=== PATIENT | male | born 1965 | race Caucasian/White ===

== ENCOUNTER → 2019-11-27 07:03 | Outpatient (CLI) | payer BC, SELFPAY ==
--- NOTE | 2019-11-27 | XR_ITS ---
PROCEDURE: XR HAND RT MIN 3V CLINICAL INDICATION: Pain and stiffness COMPARISON: No exams were available for comparison FINDINGS: No fracture or dislocation. No lytic or blastic change. There is normal mineralization. The joint spaces are well-preserved. No significant degenerative/arthritic changes. No erosive changes evident. Other findings:Minimal hypertrophic changes are present involving the distal and radial aspect of the middle phalanx of the 3rd finger. Small periarticular lucency noted along the radial aspect and distal aspect of the proximal phalanx of the 2nd finger. IMPRESSION: Nonspecific nonacute findings as described above Dictated by: Jason Cross MD 11/27/2019 10:29 Jason Cross MD in [place] 11/27/2019 10:29
--- NOTE | 2019-11-27 | XR_ITS ---
PROCEDURE: XR HAND LT MIN 3V CLINICAL INDICATION: Pain and stiffness COMPARISON: No exams were available for comparison FINDINGS: No fracture or dislocation. No lytic or blastic change. There is normal mineralization. The joint spaces are well-preserved. No significant degenerative/arthritic changes. No erosive changes evident. Other findings:There is a faint calcific density along the tuft of the distal phalanx of the thumb which could be due to an old injury in the absence of acute trauma. IMPRESSION: No acute finding. Please see above for detail Dictated by: Jason Cross MD 11/27/2019 10:32 Jason Cross MD in [place] 11/27/2019 10:32
[2019-11-27 09:47] LABS: Chloride 106 mmol/L (98-107); Potassium 4.2 mmoL/L (3.5-5.1); Sodium 139 mmol/L (136-145)
[2019-11-27 09:50] LABS: Alanine Aminotransferase 22 U/L (12-78); Albumin/Globulin Ratio 1.7 (1.1-1.8); Alkaline Phosphatase 61 U/L (38-126); Anion Gap 12.2 mEq/L (5-15); Aspartate Amino Transferase 32 U/L (17-59); Bilirubin,Total 0.8 mg/dl (0.2-1.3); Blood Urea Nitrogen 19 mg/dl (9-20); Carbon Dioxide 25 mmol/L (22.0-30.0); Cholesterol 136 mg/dl (140-200); Estimated Glomerular Filt Rate 78 ml/min (>60); GFR (African American) 95 ML/MIN (>60); Globulin 2.3 g/dL (1.3-3.2); Total Protein,Serum 6.3 g/dl (6.3-8.2); Triglycerides 77 mg/dl (30-150); VLDL Cholesterol 15 mg/dL (0-40)
[2019-11-27 09:51] LABS: Calcium 8.8 mg/dl (8.4-10.2); Glucose 106 mg/dl (74-100); HDL Cholesterol 46 mg/dl (40-60)
[2019-11-27 10:01] LABS: Direct LDL Cholesterol 76.12 mg/dL (100-129)
== END ==
PROVIDERS: Visit Provider Family Medicine
DX: M25.642 Stiffness of left hand, not elsewhere classified (principal); M25.641 Stiffness of right hand, not elsewhere classified; B35.1 Tinea unguium; Z13.1 Encounter for screening for diabetes mellitus; Z13.220 Encounter for screening for lipoid disorders
CPT/HCPCS: 36415; 73130; 80053; 80061

== ENCOUNTER → 2020-11-21 14:11 | Outpatient (CLI) | payer BC, SELFPAY ==
--- NOTE | 2020-11-21 14:16 | XR_ITS ---
PROCEDURE: XR TIBIA FIBULA RT 2V CLINICAL INDICATION: RT lower leg pain COMPARISON: No exams were available for comparison FINDINGS: No fracture or dislocation. No lytic or blastic change. There is normal mineralization. The joint spaces are well-preserved. No significant degenerative/arthritic changes. No erosive changes evident. There is a small bone island in the proximal tibia IMPRESSION: No acute findings. Dictated by: Jason Cross MD 11/21/2020 15:59 Jason Cross MD in [place] 11/21/2020 15:59
== END ==
PROVIDERS: PCP Family Medicine; Visit Provider Orthopaedic Surgery
DX: M79.604 Pain in right leg (principal)
CPT/HCPCS: 73590

== ENCOUNTER → 2020-12-04 14:14 | Outpatient (CLI) | payer BC, SELFPAY ==
--- NOTE | 2020-12-04 14:14 | MR_ITS ---
PROCEDURE: MR LOWER LEG RT WO CON CLINICAL INDICATION: evaluate for tear COMPARISON: CR XR TIBIA FIBULA RT 2V from 11/21/2020 TECHNIQUE: Routine multiplanar multi echo sequences are performed without gadolinium enhancement. FINDINGS: There is focal increased T2 signal involving the distal most aspect the medial head of the gastrocnemius muscle with a small amount fluid signal intensity in this region suggesting at least a partial tear at its insertion on the proximal aspect of the calcaneal tendon. There is a small amount of subcutaneous edema/fluid at this region. There is a small amount of edema between the medial head of the gastrocnemius and the soleus proximally. No bone marrow edema apparent. No fracture or dislocation. IMPRESSION: Partial tear of the distal most aspect of the gastrocnemius muscle with subcutaneous edema and a small amount fluid between the gastrocnemius medial head and soleus muscle the muscle does not appear retracted Dictated by: Jason Cross MD 12/06/2020 18:17 Jason Cross MD in [place] 12/06/2020 18:17
== END ==
PROVIDERS: PCP Family Medicine; Visit Provider Orthopaedic Surgery
DX: M79.604 Pain in right leg (principal)
CPT/HCPCS: 73718

== ENCOUNTER → 2020-12-19 15:52 | Outpatient (CLI) | payer BC, SELFPAY | PROVIDERS: PCP Family Medicine; Visit Provider Nurse Practitioner | DX: U07.1 COVID-19 (principal) | CPT/HCPCS: C9803; U0003; U0005 ==

== ENCOUNTER 2022-05-26 18:26 | Emergency (ER) | payer BC, SELFPAY ==
--- NOTE | 2022-05-26 18:00 | ECG_ITS ---
APPROVED REPORT Exam: Resting ECG HR:61 bpm ECG Measurements Heart Rate 61 AXES WI 160 P 60 QRSd 105 QRS 36 QT 389 T 52 QTc 393 Conclusion SINUS RHYTHM NORMAL ECG UNCONFIRMED REPORT Electronically signed by : Angel Pagan MD 05/27/2022 18:53:09
[2022-05-26 18:29] VITALS: BP 136/94; PULSE 65; RESP 16; TEMP 36.9; O2SAT 98; BMI 32.7
[2022-05-26 18:34] VITALS: BP 136/94; PULSE 65; O2SAT 98
[2022-05-26 18:54] VITALS: BMI 32.7
--- NOTE | 2022-05-26 18:55 | XR_ITS ---
PROCEDURE INFORMATION: Exam: XR Chest Exam date and time: 05/26/2022 6:53 PM Age: 56 years old Clinical indication: Pain; Chest pressure; Additional info: Chest pain TECHNIQUE: Imaging protocol: Radiologic exam of the chest. Views: 2 views. COMPARISON: CR KUB KUB (SINGLE VIEW) 01/30/2016 8:28 AM FINDINGS: Lungs: Unremarkable. No consolidation. Pleural spaces: Unremarkable. No pleural effusion. No pneumothorax. Heart/Mediastinum: Unremarkable. No cardiomegaly. Bones/joints: Unremarkable. IMPRESSION: No acute findings.
[2022-05-26 19:00] VITALS: BP 136/97; PULSE 62; O2SAT 96
[2022-05-26 19:00] LABS: Microscopic, Urine URINE MICROSCOPIC (MICROSCOPIC)
[2022-05-26 19:02] LABS: Appearance,Urine CLEAR (Clear); Basophils # 0.1 K/mm3 (0-0.2); Basophils % 1.1 % (0.1-2.0); Bilirubin,Urine Negative (Negative); Blood, Urine Negative (Negative); Color,Urine YELLOW (Yellow); Eosinophils # 0.2 K/mm3 (0.0-0.4); Eosinophils % 3.3 % (0.1-12.0); Glucose,Urine (UA) Negative (Negative); Hematocrit 40.3 % (42.0-52.0); Hemoglobin 14.1 g/dL (14.1-18.0); Ketones,Urine Negative (Negative); Leukocyte Esterase,Urine Negative (Negative); Lymphocytes # 1.7 K/mm3 (0.7-4.5); Mean Corpuscular HGB Conc 34.9 g/dL (31.8-35.4); Mean Corpuscular Hemoglobin 31.3 pg (27.0-31.2); Mean Corpuscular Volume 89.5 fl (80-94); Mean Platelet Volume 7.8 fl (7.4-10.4); Monocytes # 0.3 K/mm3 (0.1-1.0); Neutrophils # 5.2 K/mm3 (1.8-7.8); Neutrophils % 68.7 % (37.0-80.0); Nitrate,Urine Negative (Negative); Platelet Count 246 K/mm3 (142-424); Protein,Urine Negative (Negative); Red Cell Distribution Width 13.4 % (11.5-17.5); Urobilinogen,Urine 0.2 EU/dl (0.2); White Blood Count 7.5 K/mm3 (4.8-10.8)
--- NOTE | 2022-05-26 19:02 | PC.NURSE ---
pt gone to xray via wheelchair
[2022-05-26 19:06] LABS: Anion Gap 5.5 mEq/L (5-15); Blood Urea Nitrogen 18 mg/dl (9-20); Calcium 8.6 mg/dl (8.4-10.2); Carbon Dioxide 30 mmol/L (22.0-30.0); Chloride 107 mmol/L (98-107); Creatinine Clearance Estimated 138 mL/min (50-200); Estimated Glomerular Filt Rate 78 ml/min (>60); GFR (African American) 94 ML/MIN (>60); Glucose 95 mg/dl (74-100); Potassium 3.5 mmoL/L (3.5-5.1); Sodium 139 mmol/L (136-145)
[2022-05-26 19:20] LABS: Bacteria,Urine Trace /lpf; Squamous Epithelial Cell,Urine Occasional #/hpf (0-5); WBC,Urine Occasional #/hpf (0-3)
[2022-05-26 19:32] LABS: Troponin I < 0.01 ng/ml (0.00-0.034)
--- NOTE | 2022-05-26 19:45 | PC.NURSE ---
Rounded on patient and family at this time. No new needs and updated on POC.
--- NOTE | 2022-05-26 19:50 | HMH.EDCP ---
Discharge Plan Disposition Patient Disposition: Home, Self-Care Condition: Good Prescriptions Prescriptions: New sucralfate [Carafate] 1 gram tablet 1 g PO TID 28 Days Qty: 84 0RF No Action nabumetone 750 mg tablet 1,500 mg PO DAILY Qty: 180 0RF Rx Instructions: Patient needs appointment prior to any further refills. omeprazole 40 mg capsule,delayed release(DR/EC) 40 mg PO DAILY Qty: 90 3RF Referrals Follow up/Referrals: Hardik Moore MD [Primary Care Provider] - See instructions Clinical Impressions Clinical Impression: Chest pain, Gastro-esophageal reflux Print Language Print Language: Kazakh Discharge ED Provider: Robi Fontaine Chest Pain HPI General Chief Complaint: Chest Pain Stated Complaint: chest pain Time Seen by Provider: 05/26/22 20:01 Mode of Arrival: Ambulatory Source of Information: Patient Limitations: No Limitations Description of Symptoms (Recalled from ER Triage Doc. by RN): c/o chest pain that started 2 days ago with some back pain and sometimes he gets pain down his arm. States his chest pain feels like someone hit him in the chest. States when he lays down or moves to his side the pain gets worse. is concerned with his urine having odor. Took 2-81 aspirin before arrival which improved his pain. History of Present Illness HPI narrative: Patient presents to the emergency department with intermittent chest pain. He states that he has had worsening chest pain over the last several days which she describes as central and nonradiating. He states he has had some associated shortness of breath but is unsure whether it is completely related to his episodes of chest pain. Denies any changes with food. Denies any fever, chills, cough, congestion, nausea, vomiting. Denies any previous history of cardiac related problems. JOAO Score for Non-Stemi Age of Patient: 50-59 years old Heart Rate: 50-69 bpm Systolic Blood Pressure: 120-139 mmhg Serum Creatinine: 0.40-0.79 mg/dl CHF Kill[place] Class: I-No CHF Other Risk Factors: None Non-Stemi Risk Score: 82 Risk Stratification: 1-108 = Low Risk Related Data Previous Rx's Medication Instructions Recorded nabumetone 750 mg tablet 1,500 mg PO DAILY #180 tabs 04/30/22 omeprazole 40 mg capsule,delayed 40 mg PO DAILY #90 caps 04/30/22 release sucralfate 1 gram tablet (Carafate) 1 g PO TID 4 weeks #84 tabs 05/26/22 Allergies Allergy/AdvReac Type Severity Reaction Status Date / Time Iodinated Contrast Media Allergy Mild Verified 12/12/20 14:25 [Iodinated Contrast Media - Oral and] Penicillins [PENICILLINS] Allergy Mild Verified 12/12/20 14:25 shellfish derived Allergy Verified 12/12/20 14:[address] [facility] Disclaimer: The information contained in this section may have been updated after the patient was seen, as this information can be updated by other users. Social History Smoking Status: Never smoker alcohol intake: never current occupational status: employed Travel in the last 8 weeks: None caffeine: No ROS Obtained: Yes All systems reviewed & no additional complaints except as documented Cardiovascular Cardiovascular: Reports chest pain Physical Exam General General appearance: alert and in no apparent distress Head Head exam: atraumatic and normocephalic Eye Eye exam: Present normal appearance, PERRL and EOMI Chest Chest inspection: Present normal inspection Respiratory Respiratory exam: Present normal lung sounds bilaterally Cardiovascular Cardiovascular exam: Present regular rate, normal rhythm and normal heart sounds Abdominal Exam Abdominal exam: Present soft and normal bowel sounds Extremities Exam Extremities exam: Present normal inspection Neurological Exam Neurological exam: Present alert and oriented X3 Psychiatric Psychiatric exam: Present normal affect and normal mood Skin Skin exam: Present warm and dry Medical
--- NOTE | 2022-05-26 19:56 | PC.NURSE ---
MD at bedside discussing results with pt.
[2022-05-26 20:09] VITALS: BP 134/86; PULSE 64; RESP 16; TEMP 37; O2SAT 97
[2022-05-26 20:11] VITALS: BP 136/88; PULSE 86; RESP 17; TEMP 36.6; O2SAT 98
== END 2022-05-26 20:13 | disposition home or self-care (01) ==
PROVIDERS: Emergency Provider Emergency Medicine; PCP Family Medicine
DX: R07.89 Other chest pain (principal); K21.9 Gastro-esophageal reflux disease without esophagitis
CPT/HCPCS: 71046; 80048; 81001; 84484; 85025; 93005; 99285

== ENCOUNTER → 2022-06-17 06:11 | Outpatient (CLI) | payer BC, SELFPAY ==
--- NOTE | 2022-06-17 06:14 | CA_ITS ---
APPROVED REPORT Exam: Exercise Treadmill Technologist: Irasema Cole, Ht: 6 ft 2 in Wt: 262 lbs BSA: 2.44 m2 HR: 53 bpm BP: 127/86 mmHg Rhythm: NSR Medical History Medications: Omeprazole,,,,, Nabumetone,,,,, Sucralfate,,,,, Stress Test Details Test: Brooke HR Resting HR: 57 bpm Max Heart Rate (APMHR): 166 bpm Max HR Achieved: 148 bpm Target HR (85% APMHR): 141 bpm % of APMHR: 89 Recovery HR: 103 bpm BP Resting BP: 126/91 mmHg Max BP: 183/105 mmHg Recovery BP: 179.0/98.0 mmHg ECG Resting ECG: NSR Clinical Reason for Termination: Dyspnea Exercise duration: 10:01 min Highest Stage Achieved: Exercise capacity: 12.8 METs Stress ECG Conclusion During brooke protocol pt walked total of 10 minutes. 12.8 METS. Frequent bigeminy in stage 2 noted. No CP noted. Less than 1.[address] segment depression noted from the baseline EKG. The EKG portion of the exercise Myoview is negative for ischemia. Test Summary REST . . . . . . . Sitting REST . . . . . . . Standing REST . . . . . . . Standing REST 07:23 0.0 1.2 57 . 126/ 91 . . Stage 1 01:00 10.0 1.7 90 . . . . Stage 1 02:00 10.0 1.7 95 . . . . Stage 1 03:00 10.0 1.7 95 . 132/ 95 . . Stage 2 01:00 12.0 2.5 111 . . . . Stage 2 02:00 12.0 2.5 121 . . . . Stage 2 03:00 12.0 2.5 122 . 159/100 . . Stage 3 01:00 14.0 3.4 124 . . . . Stage 3 02:00 14.0 3.4 133 . . . . Stage 3 03:00 14.0 3.4 140 . 183/105 . . Stage 4 01:00 16.0 4.2 148 . . . . Stage 4 01:01 16.0 4.2 148 . . . Stop exercise at 10:01 RECOVERY 01:00 0.0 0.0 110 . . . . RECOVERY 02:00 0.0 0.0 85 . 179/ 98 . . RECOVERY 03:00 0.0 0.0 69 . 179/ 98 . . RECOVERY 04:00 0.0 0.0 72 . 179/ 98 . . RECOVERY 05:00 0.0 0.0 71 . 179/ 98 . . RECOVERY 06:00 0.0 0.0 70 . 179/ 98 . . RECOVERY 06:12 0.0 0.0 73 . 179/ 98 . . Electronically signed by : Ben Avery MD 06/17/2022 12:58:55
--- NOTE | 2022-06-17 06:14 | NM_ITS ---
APPROVED REPORT Exam: Nuclear Stress Test Indication: C.P.SOB Patient Location: Outpatient Stress Tech: Irasema Cole CO Tech:Bre Baker CHAUNCEY RT (R)(N)(M) Ht: 6 ft 2 in Wt: 250 lbs HR: 53 bpm BP: 127/86 mmHg BSA: 2.39 m2 TID: 1.08 BMI: 32.0 History: C.P.SOB Procedure: Patient exercised on Robi protocol 10:00 minutes and sec, resting heart rate 53 bpm, resting blood pressure 127/86 mmHg, with exercise maximum heart rate achived was 139 bpm which is 105 % of the maximum predicted heart rate and blood pressure was 183/105 mmHg. Test was stopped due to SOB. Patient denied any complaint of chest pain. Patient has Good exercise capacity, achieved 12.8 METs of workload on treadmill, the blood pressure response to exercise was Adequate. Electrocardiogram Resting electrocardiogram shows sinus rhythm, with exercise there is less than 1.[address] segment depression noted from the baseline EKG. The EKG portion of the exercise Myoview is negative for ischemia. Cardiac Stress and Resting SPECT Images: Cardiac Stress and Resting SPECT images were obtained using technetium 99m Myoview 30.7 mCi stress and 10.17 mCi at rest. Gated SPECT analysis of segmental wall motion and calculation of the ejection fraction also done. Prone images were also obtained. Cardiac stress and resting SPECT images show uniform myocardial activity without segmental perfusion abnormality, computer derived ejection fraction is 55% with no regional wall motion abnormality, right ventricle is normal size and contractility. Conclusion: 1. The EKG portion of the exercise Myoview is negative for ischemia. Patient has good exercise capacity achieved 12.8 METs of workload treadmill, the blood pressure response to exercise was adequate, there was no exercise-induced chest discomfort. 2. No scintigraphic evidence of reversible ischemia seen, computer derived ejection fraction 55% with no regional wall motion abnormality, right ventricle is normal size and contractility. 3. Normal exercise Myoview study. Electronically signed by : Ben Avery MD 06/17/2022 13:02:28
--- NOTE | 2022-06-17 06:14 | CA_ITS ---
APPROVED REPORT EXAM: Comprehensive 2D, Doppler, and color-flow Echocardiogram Manager Rental: Elsi Mcpherson RVT Ht: 6 ft 2 in Wt: 262lbs BSA: 2.44 BP: 127/88 mmHg Indications: CP,GERD,OLMEDO 2D Dimensions LVOT 2.40 cm (M/F) 1.5-2.5 LA Volume 28.00 mL LA Volume Index 11.48 mL/m2 (M/F) 16-34 M-Mode Dimensions RVDd 2.43 cm (0.9-2.6) LA Diam 3.72 cm (1.9-4.0) LVDd 5.02 cm (3.5-5.7) Ao Diam 3.05 cm (2.0-3.7) LVDs 3.31 cm (3.5-5.7) IVSd 1.22 cm (0.6-1.1) PWd 0.84 cm (0.6-1.1) EF (Teich) 62.70% FS 34.10% EDV (Teich) 119.30 mL TAPSE 2.30 (<1.7) ESV (Teich) 44.50 mL LV Diastology E Decel Time 230.00 (160-240 msec) E/A Ratio 1.1 MED E' 6.00 (< 7 cm/sec) E'/MED E' Ratio 13.23 (>14) LAT E' 10.00 (<10 cm/sec) E/LAT E' Ratio 7.94 (>14) Aortic Valve AO Peak GR. 7.60 mmHg Mitral Valve MV E Max Jatinder. 79.00 (40-130 cm/s) MV A Velocity 69.00 (40-130 cm/s) E/A Ratio 1.16 MV Decel. Time 230.00 (160-240 ms) MV PHT 67.00 ms Pulmonary Valve PV Peak Velocity 79.00 (50-150 cm/s) Tricuspid Valve TR P. Velocity 199.00 cm/s RAP Estimate 10.00 mmHg RVSP 25.80 mmHg Left Ventricle Left atrium normal size left ventricle is normal size, estimated ejection fraction 55% with no regional wall motion abnormality, diastolic parameters are within normal range. Right Ventricle Right atrium and right ventricle are mildly enlarged with normal contractility. Aortic Valve Aortic valve is minimally thickened and fibrosed there is no aortic stenosis or aortic insufficiency. Mitral Valve Mitral valve is grossly normal, there is trace mitral regurgitation. Tricuspid Valve Tricuspid grossly normal, there is trace tricuspid regurgitation, tricuspid regurgitation jet velocity is inadequate for calculation of the right ventricular systolic pressure. Pulmonic Valve Pulmonic valve is poorly visualized. Great Vessels Aortic root is normal size. Inferior vena cava is mildly dilated with less than 50% inspiratory collapse. Pericardium No significant pericardial effusion noted. Conclusion 1. Normal left ventricular size preserved left ventricular systolic function, estimated ejection fraction 55% with no regional wall motion abnormality, diastolic parameters are within normal range. 2. Mildly enlarged right atrium and right ventricle with normal contractility. 3. Trace mitral and tricuspid regurgitation. 4. No significant pericardial effusion noted. 5. Inferior vena cava is mildly dilated with less than 50% inspiratory collapse. Electronically signed by : Ben Avery MD 06/17/2022 20:48:22
== END ==
PROVIDERS: PCP Family Medicine; Visit Provider Physician Assistant
DX: R06.09 Other forms of dyspnea (principal); R07.9 Chest pain, unspecified
CPT/HCPCS: 78452; 93017; 93306; A9502

== ENCOUNTER → 2022-08-05 10:31 | Outpatient (CLI) | payer BC, SELFPAY ==
--- NOTE | 2022-08-05 10:43 | MR_ITS ---
FINAL REPORT CLINICAL HISTORY: ACUTE PAIN OF LEFT SHOULDER. LIMITED ROM. FINDINGS: Multi planar MR imaging of the left shoulder was performed. There is mild abnormal signal at the insertion of the supraspinatus tendon consistent with a partial insertional tear. The subscapularis tendon is intact. There is no abnormal fluid in the subacromial/subdeltoid bursa. There is heterogeneous abnormal signal in the anterior labrum probably due to a chronic anterior labral tear. The posterior labrum is intact. There is degenerative cyst formation in the posterior bony glenoid. The biceps tendon appears intact. The acromioclavicular joint appears intact. A small joint effusion is present. IMPRESSION: Partial insertional tear of the distal supraspinatus tendon without a full-thickness component. Chronic tear of the anterior labrum. Degenerative cyst formation in the posterior glenoid. Reviewed, Interpreted and Dictated by Dwayne Bourgeois MD Transcribed by Tho Moran Authenticated and [facility]
== END ==
LOC: RAD 10:32
PROVIDERS: PCP Family Medicine; Visit Provider Physician Assistant
DX: M25.512 Pain in left shoulder (principal)
CPT/HCPCS: 73221

== ENCOUNTER 2022-08-14 09:56 | Day surgery (SDC) | payer BC, SELFPAY ==
[2022-08-12 09:01] VITALS: BMI 33.3
[2022-08-14 10:15] VITALS: BP 163/98; PULSE 67; RESP 18; TEMP 36.1; O2SAT 98
--- NOTE | 2022-08-14 10:48 | P.PN_ITS ---
[facility] Disclaimer: The information contained in this section may have been updated after the patient was seen, as this information can be updated by other users. Medical History History of gastroesophageal reflux (GERD) Surgical History History of colonoscopy History of tonsillectomy Family History Other No significant family history Social History Smoking Status: Never smoker alcohol intake: never substance use type: denies use current occupational status: employed Travel in the last 8 weeks: Inside the [place] household members: spouse housing: house marital status: education level: college caffeine: Yes special samantha needs: No do you feel safe at home: Yes victim of physical abuse: No victim of emotional abuse: No victim of sexual abuse: No would you like helpful sources: No [facility] Anesthesia Checklist Patient Identification Patient Identification: Arm Band and Verbal (Name & ) Structural Data Admitted From: Home Planned Operative Procedure/s: EGD Consent for Planned Operative Procedure(s) Verified: Yes NPO Status Verified Time NPO: 00:00 Additional verifications Anesthesia Reactions: No Airway Assessment C-Spine Mobility Assessed: Yes TMJ Mobility Assessed: Yes Dentition: Good Dentition Neurological Assessment Level of Consciousness: Awake Hx Seizures: No Numbness or tingling in extremities: No Anesthesia Plan Anesthesia Risk discussed: Yes Anesthesia Plan: Verified ASA Class: I Anesthesia Type: MAC
[2022-08-14 11:24] VITALS: O2SAT 97
--- NOTE | 2022-08-14 11:34 | HMH.SCOPE ---
Procedure: Date: 08/14/22 Patient Date of :: 1965 Procedure Performed:: EGD Indications:: The patient is a 57 year old who presents for EGD evaluation of GERD and non cardiac chest pains Performing Provider:: Steve Rubi MD Referring Provider:: Анна Watson APRN Sedation:: See RN records Procedure:: The gastroscope was gently passed through the incisoral orifice into the oral cavity and under direct visualization the esophagus was intubated. The endoscope was passed down the esophagus, through the stomach, and into the duodenum. Color, texture, mucosa, and anatomy of the esophagus, stomach, and duodenum were carefully examined with the scope. Findings:: Oropharynx: normal Esophagus: Tongue of salmon colored mucosa atleast 1 cm in size. LA Class A esophagitis. Biopsies obtained EG Junction: irregular z-line at 40 cm Cardia: small hiatal hernia Fundus: normal Body: diffuse erythema. biopsies obtained Antrum: diffuse erythema. Biopsies obtained Duodenal bulb: normal Duodenum (second and third portion): normal Impression: Distal esophagitis Small hiatal hernia Gastric erythema Recommendations:: Await pathology results Increase omeprazole to 40 mg two times per day x 8 weeks, then take once daily Antireflux measures Avoid late night eating of meals within 3 hours of bedtime Complications:: none Estimated blood obtained (mL): 0
[2022-08-14 11:38] VITALS: BP 149/86; PULSE 68; RESP 18; TEMP 36.1; O2SAT 93
[2022-08-14 11:48] VITALS: BP 134/83; PULSE 65; RESP 17; O2SAT 94
[2022-08-14 11:58] VITALS: BP 134/90; PULSE 58; RESP 17; O2SAT 97
[2022-08-14 12:08] VITALS: BP 128/94; PULSE 72; RESP 17; O2SAT 98
== END 2022-08-14 12:15 | disposition home or self-care (01) ==
PROVIDERS: Internal Medicine; PCP Family Medicine; Visit Provider Internal Medicine Gastroenterology
PROC: 0DJ08ZZ Inspection of Upper Intestinal Tract, Via Natural or Artificial Opening Endoscopic (ICD-10-PCS; CPT 43235; principal; 2022-08-14 11:00)
DX: K31.9 Disease of stomach and duodenum, unspecified; K21.00 Gastro-esophageal reflux disease with esophagitis, without bleeding; K44.9 Diaphragmatic hernia without obstruction or gangrene; Z79.899 Other long term (current) drug therapy
CPT/HCPCS: 43239

== ENCOUNTER 2022-09-11 14:30 | Outpatient (RCR) | payer BC, SELFPAY ==
--- NOTE | 2022-09-04 17:57 | HMH.PTOPEV ---
PT Outpatient Evaluation Rehab PT Outpatient Evaluation Start: 09/04/22 17:46 Freq: Status: Active Protocol: Document 09/04/22 17:46 CHRIS (Rec: 09/04/22 17:56 CHRIS [id number]) E-signed By Keo Dutton, PT Outpatient Therapy Subjective History Subjective History Patient is a 57 year old male presenting to outpatient PT with reports of R hip pain starting approximatley 1 month ago of insidious onset. S&S consistent with piriformis syndrome and GT bursitis. Special tests indicate RANTINN . No recent imaging to report. Comorbidities include GERD. [ End ] Chief Complaint Pain Symptom Type Ache,Dull Symptoms Relieved By Rest/Positioning,OTC Meds Symptoms Aggravated By Standing,Physical Activity, Walking Prior Functional Limitations None Current Functional Limitations Lifting,Housework,Standing, Walking Symptom Description Intermittent Level of pain today (0-10) 0 Pain scale - at its best (0-10) 0 Pain scale - at its worst (0-10) 9 Hip/Knee Eval Gait Observation General Gait Pattern Observation No Deviations/Normal Assistive Device Assistive Devices None / NA Palpation Tenderness right Knee Palpation Overall Comment GT/piriformis 3/4 Hip Palpation Findings Tenderness MMT Hip Strength Reason Not Measured WFL Knee Strength Reason Not Measured WFL ROM Hip Flexion w/Knee Flexed Passive Range 87 of Motion (degrees) Hip Flexion w/Knee Extended Passive 42 Range of Motion (degrees) Hip Abduction Passive Range of Motion ( 38 degrees) Hip External Rotation Passive Range of WNL Motion (degrees) Hip Internal Rotation Passive Range of 7 Motion (degrees) Hip ROM Limitations Soft Tissue Tightness Knee ROM Reason Not Measured Within Functional Limits Special Tests Hip Su Test Positive Right Hip Piriformis Test Positive Right Outpatient Therapy Assessment Impairments Problems/Impairmments Palpation Tenderness,Impaired Range of Motion,Impaired Walking,Impaired Standing, Impaired Sitting,Impaired Household Care,Impaired Stair Climbing,Impaired Recreational Activities,Impaired Work Activities,Sub
== END 2022-09-11 14:35 | disposition home or self-care (01) ==
LOC: PT 14:30
PROVIDERS: PCP Family Medicine; Visit Provider Physician Assistant
DX: M70.61 Trochanteric bursitis, right hip (principal); G57.01 Lesion of sciatic nerve, right lower limb
CPT/HCPCS: 97110; 97163; 97530

== ENCOUNTER 2022-10-14 08:00 | Outpatient (RCR) | payer BC, SELFPAY ==
--- NOTE | 2022-09-13 10:42 | HMH.OTOPEV ---
OT Inpatient Evaluation Rehab OT Outpatient Eval Start: 09/13/22 09:49 Freq: Status: Active Protocol: Document 09/13/22 09:49 CLEMENTENOMI (Rec: 09/13/22 10:27 DAVID [id number]) E-signed By Manisha Toledo, OT Outpatient Therapy Subjective History Subjective History 57 year old male referred to skilled OP OT skilled services for left shoulder pain. Patient stated to have left shld pain for the past 3 months. MRI taken on 08/05/22. Partial insertional tear of the distal supraspinatus tendon without a full- thickness component. Chronic tear of the anterior labrum. Degenerative cyst formation in the posterior glenoid. Chief Complaint Pain,Weakness Symptom Type Ache Symptoms Relieved By Nothing Symptoms Aggravated By Physical Activity Prior Functional Limitations None Current Functional Limitations Reaching,Lifting,Dressing, Sleeping,Recreation Activity Symptom Description Constant and Continuous Level of pain today (0-10) 3 Pain scale - at its best (0-10) 3 Pain scale - at its worst (0-10) 8 Shoulder/Elbow Eval Shoulder Objective Measurements Shoulder ROM Left Shoulder Abduction Active Range of 120 Motion (degrees) Shoulder Flexion Active Range of Motion 100 (degrees) Query Text: Shoulder External Rotation Active Range 30 of Motion (degrees) Shoulder Internal Rotation Active Range 20 of Motion (degrees) pain with active ROM shoulder exam left standard Shoulder MMT Shoulder Abduction Strength Grade 3 Fair Shoulder Extension Strength Grade 3 Fair Shoulder Flexion Strength Grade 3 Fair Shoulder Horizontal Abduction Strength 3 Fair Grade Shoulder Horizontal Adduction Strength 3 Fair Grade Infraspinatus/Teres Minor Strength Grade 3 Fair Shoulder External Rotation Strength 3 Fair Grade Shoulder Internal Rotation Strength 3 Fair Grade Shoulder Special Tests impingement sign present shoulder exam left standard Shoulder Empty Can (Supraspinatus) Test Positive Left Shoulder Linn-Fahad Impingement Positive Left Test Elbow Objective Measurements OT Outpatient Assessment Impairments Problems/Impairments
== END 2022-10-14 08:05 | disposition home or self-care (01) ==
LOC: OT 08:00
PROVIDERS: PCP Family Medicine; Visit Provider Orthopaedic Surgery
DX: M75.102 Unspecified rotator cuff tear or rupture of left shoulder, not specified as traumatic; M75.42 Impingement syndrome of left shoulder
CPT/HCPCS: 97010; 97014; 97016; 97035; 97110; 97140; 97165; 97530; G0283

== ENCOUNTER → 2023-09-10 09:04 | Outpatient (CLI) | payer BC, SELFPAY | LOC: SL 09:04 | PROVIDERS: PCP Physician Assistant; Visit Provider Physician Assistant | DX: G47.33 Obstructive sleep apnea (adult) (pediatric) (principal); G47.36 Sleep related hypoventilation in conditions classified elsewhere | CPT/HCPCS: G0399 ==

== ENCOUNTER 2024-04-06 12:58 | Outpatient (CLI) | payer MEDICAID, SELFPAY ==
[2024-04-06 19:34] LABS: Basophils % 0.7 % (0.1-2.0); Eosinophils # 0.2 K/mm3 (0.0-0.4); Hematocrit 42.8 % (42.0-52.0); Hemoglobin 14.6 g/dL (14.1-18.0); Lymphocytes # 1.6 K/mm3 (0.7-4.5); Lymphocytes % 28.7 % (10-50); Mean Corpuscular HGB Conc 34.1 g/dL (31.8-35.4); Mean Corpuscular Hemoglobin 31.1 pg (27.0-31.2); Mean Corpuscular Volume 91.3 fl (80-94); Mean Platelet Volume 10.1 fl (7.4-10.4); Monocytes # 0.4 K/mm3 (0.1-1.0); Monocytes % 6.9 % (1.7-9.3); Neutrophils # 3.4 K/mm3 (1.8-7.8); Neutrophils % 60.5 % (37.0-80.0); Platelet Count 232 K/mm3 (142-424); Red Blood Count 4.69 M/mm3 (4.60-6.20); Red Cell Distribution Width 13.2 % (11.5-17.5); White Blood Count 5.7 K/mm3 (4.8-10.8)
[2024-04-06 20:02] LABS: Alanine Aminotransferase 46 U/L (12-78); Albumin Level 4.3 g/dl (3.5-5.0); Alkaline Phosphatase 81 U/L (38-126); Aspartate Amino Transferase 40 U/L (17-59); Blood Urea Nitrogen 22 mg/dl (9-20); Carbon Dioxide 25 mmol/L (22.0-30.0); Chloride 104 mmol/L (98-107); Estimated Glomerular Filt Rate 63 ml/min (>60); GFR (African American) 76 ML/MIN (>60); Globulin 2.2 g/dL (1.3-3.2); Glucose 89 mg/dl (74-100); Lipase 90 U/L (23-300); Potassium 4.2 mmoL/L (3.5-5.1); Total Protein,Serum 6.5 g/dl (6.3-8.2)
[2024-04-06 20:31] LABS: Anion Gap 12.2 mEq/L (5-15); Sodium 137 mmol/L (136-145)
== END 2024-04-06 23:59 | disposition home or self-care (01) ==
LOC: LAB.DROPOF 04-08 12:49
PROVIDERS: PCP Family Medicine; Visit Provider Family Medicine
DX: K21.9 Gastro-esophageal reflux disease without esophagitis (principal)
CPT/HCPCS: 80053; 83690; 85025

== ENCOUNTER 2024-12-21 12:09 | Outpatient (CLI) | payer BC, SELFPAY ==
--- OUTSIDE RECORDS SUMMARY | 2023-08-21 11:00 | XMS_ITS ---
Author Organization [facility] Address [address] [place] [id number] Care Team Providers Care Deskidding Machine Operator Name Role Phone Zeus Mooreian Primary Care Provider [phone] Анна Watson Unavailable [phone] Allergies Allergen (clinical drug ingredient) Drug/Non Drug [...] 10:20:19 AM Interpretation:gluc 105 Performing Lab: Notes/Report: Test performed by [facility], [facility]0 [facility] , [address], [place] [address] Krish Cali MD, Audio Video Mechanic CLIA: [id number] Sodium 140 135-145 mEq/L Potassium 4.0 3.5-5.3 [...] Interpretation:Normal Performing Lab: Notes/Report: Test performed by [facility] [address] [place], [place] [address] [place] , [address], [place] [address] Krish Cali MD, Audio Video Mechan[employer] CLIA: [id number] Erythrocyte Sedimentation Rate (ESR), Automated 2 <21 mm/hr Rheumatoid Factor <10 <14.1 IU/mL C-Reactive Protein (CRP) 0.18 <0.50 mg/dL Antinuclear Antibodies (RASHAWN) Screen, Reflex RASHAWN 9 Panel Negative Negative Test performed by [employer] Bead Immunoassay methodology. Antinuclear Antibodies (RASHAWN) Result Note SEE COMMENT For positive Autoantibodies, please refer to the interpretive chart here: [email or web address] CCP Antibodies <0.5 <0.5-3.0 U/mL P-Lipid Panel Reviewed date:08/25/2023 10:20:19 AM Interpretation:Normal Performing Lab: Notes/Report: Test performed by [facility] [address] [place], [place] [address] [place] , [address], [place] [address] Krish Cali MD, Audio Video Mechanic CLIA: [id number] Cholesterol 134 <200 mg/dL Triglycerides 92 <150 [...] Interpretation:Normal Performing Lab: Notes/Report: Test performed by [facility] [place] [address] Krish Cali MD, Audio Video Mechan[employer] CLIA: [id number] PSA 1.63 <4.00 ng/mL Please note this is an ultrasensitive PSA assay with a lower limit of detection of 0.014 ng/mL. This test is performed by the Lilia ECLIA methodology. Values obtained with different assay methods or kits cannot be directly compared. P-TSH reflex to FT4 Reviewed date:08/25/2023 10:20:19 AM Interpretation:Normal Performing Lab: Notes/Report: Test performed by [facility]0 [facility] [place] [address] Krish Cali MD, Audio Video Mechanic CLIA: [id number] TSH reflex to FT4 2.60 0.43-5.25 mU/L P-Vitamin D 25-Hydroxy Reviewed date:08/25/2023 10:20:19 AM Interpretation:35.3 Performing Lab: Notes/Report: Test performed by [facility] [address] [place] [address] , [address], [place] [address] Krish Cali MD, Audio Video [employer]ic CLIA: [id number] Vitamin D 25-Hydroxy 35.3 30.0-100.0 ng/mL Interpretation [...] Status W/U Status Risk Notes Problem Obesity (258395200) Obesity (BMI 30-39.9) (E66.9) Active confirmed Vital Signs Blood pressure systolic 120 mm Hg 08/21/19 24 Blood pressure diastolic 82 mm Hg 024 Heart Rate 77 /min 08/21/2023 Height 74 in 08/21/2023 Weight 252 lbs 08/21/2023 BMI 32.35 kg/m2 08/21/2023 Encounters Encounter Location Date Provider Diagnosis [facility] [address] [place], [place] [id number] 08/21/2023 Анна Watson Vitamin D deficiency E55.9 [...] * MINDY PACHECO ADOB:1965 (59 yo M)Acc No.[id number]:08/21/2023 Progress Notes Patient: MINDY SMITH Provider: CONNIE Beatty :1965 A ge:58 Y S ex:Male Date:08/21/2023 Address:[facility] [place], [id number] Pcp:Hardik Moore Subjective: * Chief Complaints: * [...] T riglycerides 92 <150 - mg/dL * HenryAniyah 08/25/2023 10:1 9:06 AM >See phone encounter 7.?Obesity (BMI 30-39.9)? Start Zepbound Solution Auto-injector, 2.5 MG/0.5ML, 2.5 ml, Subcutaneous, once a week, 4, Refills 0.?? * Procedure Codes: 8 5025 CBC WITH AUTO DIFF, 60937 VENIPUNCT, ROUTINE* * Follow Up: v ia phone to report test results * Images: Billing Information: * Visit Code: 96877 Office Visit, Est Pt., Level 4. * Procedure Codes: 02490 CBC WITH AUTO DIFF. 11833 VENIPUNCT, ROUTINE*. * Electronic signature of CONNIE Wang on 12/22/2024 at 01:10 PM EDT Sign off status: Pending * Provider: CONNIE Beatty Date: 0 08/21/2023 Generated for Pierce ng/Fahilariog/eTransmitting on: 0 12/22/2024 01:10 PM EDT History and Physical Notes * HPI [...]
[2024-12-21 16:19] LABS: Albumin Level 4.5 g/dl (3.5-5.0); Chloride 105 mmol/L (98-107); Potassium 4.4 mmoL/L (3.5-5.1); Sodium 138 mmol/L (136-145)
[2024-12-21 16:22] LABS: Alanine Aminotransferase 30 U/L (12-78); Albumin/Globulin Ratio 1.8 (1.1-1.8); Alkaline Phosphatase 90 U/L (38-126); Anion Gap 12.4 mEq/L (5-15); Aspartate Amino Transferase 44 U/L (17-59); Bilirubin,Total 1.1 mg/dl (0.2-1.3); Blood Urea Nitrogen 20 mg/dl (9-20); Carbon Dioxide 25 mmol/L (22.0-30.0); Creatinine,Serum 0.90 mg/dl (0.66-1.25); Estimated Glomerular Filt Rate 87 ml/min (>60); GFR (African American) 105 ML/MIN (>60); Globulin 2.5 g/dL (1.3-3.2); Glucose 110 mg/dl (74-100); Total Protein,Serum 7.0 g/dl (6.3-8.2)
[2024-12-21 16:23] LABS: Calcium 9.5 mg/dl (8.4-10.2)
[2024-12-21 17:58] LABS: Thyroid Stimulating Hormone 2.12 uIU/mL (0.465-4.68)
[2024-12-21 18:17] LABS: Vitamin B12 742 pg/mL (239-931)
--- OUTSIDE RECORDS SUMMARY | 2024-12-22 13:11 | XMS_ITS | Patient Health Record ---
Author Organization [facility] [address] [facility] [address] [place] [id number] Care Team Providers Care Diet Kitchen Cook Name Role Phone Hardik Moore Primary Care Provider [phone] Shirley Анна Unavailable [phone] Allergies Allergen (clinical drug ingredient) Drug/Non Drug Allergy documented on EMR Reaction Allergy Type Onset Date Status Penicillin rash Drug Allergy Active Shellfish (FN) Shellfish-derived Products rash Drug Allergy Active Reason For Referral No Information Medications Medication SIG (Take, Route, Frequency, Duration) Notes Start Date End Date Status Zepbound 2.5 MG/0.5ML 2.5 ml Subcutaneou s once a week 08/21/2023 Active Omeprazole 40 MG 1 cap(s) orally Two times a day; Duration: 90 days Active CPAP machine and supplies - as directed as directed 08/13/2024 Acti ve Immunizations Vaccine Route Administration Date Status Comme nts COVID 19 Pfizer Unknown 02/10/2021 Administered COVID 19 Pfizer Unknown 03/05/2021 Administered Hepatitis A (adult) Unknown 02/01/2018 Administered Tetanus Tdap-Adacel (over 7yrs) Unknown 04/28/2022 Admi nistered Problems Problem Type SNOMED Code ICD Code Onset Dates Problem Status W/U Status Risk Notes Problem Vitamin D deficiency (43699700) Vitamin D deficiency (E55.9) Active confirmed Problem Sciatic nerve lesion (676937141) Piriformis syndrome of right side (G57.01) Active confirmed Problem Obesity (519513114) Obesity (BMI 30-39.9) (E66.9) Active confirmed Problem Gastroesophageal reflux disease (472299548) Gastroesophageal reflux disease, esophagitis presence not specified (K21.9) Active confirmed Problem Joint pain (26707464) Arthralgia, unspecified joint (M25.50) Active confirmed Problem Gastroesophageal reflux disease (130315338) Gastroesophageal reflux disease, unspecified whether esophagitis present (K21.9) Active confirmed Encounters Encounter Location Date Provider Diagnosis [facility] [address] [facility] [address] [place] [id number] 08/13/2024 Анна Watson Plan Of Treatment No Information Insurance Providers Payer Name Payer Address Payer Phone Subscriber Number Group Number Insured Name Patient Relationship to Insured Coverage Start Date Coverage End Date [employer] [address] [place] [address] [id number] MINDY PACHECO Self - patient is the insured Medical (General) History Medical History History ICD Code kidney stones, 2016 Esophageal reflux hemorrhoids diverticulosis Surgical History Surgery Date(Month/Year) Nephrolithotomy 2016 Tonsillectomy colonoscopy 2018
--- OUTSIDE RECORDS SUMMARY | 2024-12-22 13:11 | XMS_ITS | Clinical Summary ---
Author Organization [facility] Address [address] [place] [address] Care Team Providers Care Bag Machine Operator Helper Name Role Phone Unavailable Primary Care Provider Unavailabl e Encounters Date Type Department Care Team Description 10/21/2024 Telephone [facility] Room [address] [place] [address] Alka Moya from Last 3 Months Social History Tobacco Use Types Packs/Day Years Used Date Smoking Tobacco: Never Assessed Sex and Gender Information Value Date Recorded Sex Assigned at Not on file Legal Sex Male 8:25 PM EDT Gender Identity Not on file Sexual Orientation Not on file Plan of Treatment Not on file
--- OUTSIDE RECORDS SUMMARY | 2024-12-22 13:11 | XMS_ITS | Encounter Summary ---
Author Organization [facility] Address [address] [place] [id number] Care Team Providers Care Firmware Manager Name Role Phone Unavailable Primary Care Provider Unavailabl e Reason for Referral * Consultation (Routine) - Authorized Specialty Diagnoses / Procedures Referred By Contac t Referred To Contact Dentist / Pain Medicine Diagnoses Obstructive sleep apnea syndrome Micheline Moss MD [address] [place] [address] Phone: tel: fax: Marcelina Sena, DDS [address] [facility] [address] [place] [address] Phone: tel: fax: Referral ID Status Reason Start Date Expiration Date V isits Requested Visits Authorized [id number] Authorized 07/12/2024 01/11/2026 1 1 Encounter Details Date Type Department Care Team (Late st Contact Info) Description 07/12/2024 Community [facility] [address] [place] [address] Micheline Moss MD [address] [facility] [address] [place] [address] Obstructive sleep apnea syndrome (Primary Dx) Social History Tobacco Use Types Packs/Day Years Used Date Smoking Tobacco: Never Assessed Sex and Gender Information Value Date Recorded Sex Assigned at Not on file Legal Sex Male 8:25 PM EDT Gender Identity Not on file Sexual Orientation Not on file documented as of this encounter Plan of Treatment Scheduled Referrals Name Type Priority Associated Diagnoses Order Schedule Ambulatory Referral to Orofacial Pain Outpatient Referral Routine Obstructive sleep apnea syndrome Expected: 07/12/2024 (Approximate), Expires: 01/11/2026 documented as of this encounter Visit Diagnoses Diagnosis Obstructive sleep apnea syndrome- Primary Obstructive sleep apnea (adult) (pediatric) documented in this encounter
== END 2024-12-21 23:59 | disposition home or self-care (01) ==
LOC: LAB.DROPOF 12-22 13:07
PROVIDERS: PCP Family Medicine; Visit Provider Family Medicine
DX: L60.2 Onychogryphosis (principal); R53.83 Other fatigue
CPT/HCPCS: 80053; 82607; 84443

== ENCOUNTER 2024-12-29 07:48 | Outpatient (CLI) | payer BC, SELFPAY ==
--- OUTSIDE RECORDS SUMMARY | 2023-08-21 11:00 | XMS_ITS ---
[facility] [address] [place] [id number] Care Team Providers Care Latin Professor Name Role Phone TeresaZeusHardik Primary Care Provider [phone] Анна Watson Unavailable [phone] Allergies Allergen (clinical drug ingredient) Drug/Non Drug Allergy documented on EMR Reaction Allergy Type Onset Date Status Penicillin rash Drug Allergy Active Shellfish (FN) Shellfish-derived Products rash Drug Allergy Active Results Component Value Reference Range Notes CBC Venipuncture (in house) Reviewed date:08/22/2023 09:44:23 AM Interpretation: Performing Lab: Notes/Report: wbc 5.8 3.5 - 10 lymph 29.8 15 - 50 mid 6.7 2 - 15 gran 63.5 35 - 80 rbc 4.74 3.5 - 5.5 hgb 14.9 11.5 - 16.5 hct 43.6 35 - 55 mcv 92.0 75 - 100 mch 31.4 25 - 35 mchc 34.2 31 - 38 platlet 217 100 - 400 P-Comprehensive Metabolic Pa navi (CMP) Reviewed date:08/25/2023 10:20:19 AM Interpretation:gluc 105 Performing Lab: Notes/Report: CLIA: [id number] Krish Cali MD, [facility] , [address], [place] [address] Test performed by [facility], [facility] Sodium 140 135-145 mEq/L Potassium 4.0 3.5-5.3 mEq/L Chloride 105 97-108 mEq/L CO2 25 22-32 mEq/L Glucose 105 65-99 mg/dL BUN 16 6-20 mg/dL Creatinine 1.00 0.70-1.30 mg/dL Calcium 9.4 8.6-10.4 mg/dL eGFR by Creatinine 88 >59 mL/min/1.73m2 Protein 6.6 6.0-8.3 g/dL Albumin 4.6 3.5-5.3 g/dL Alkaline Phosphatase 71 40-129 IU/L ALT (SGPT) 19 <5-55 IU/L AST (SGOT) 24 <5-46 IU/L Bilirubin, Total 0.9 <0.2-1.2 mg/dL A/G Ratio 2.3 1.1-2.5 mg/dL P-Arthritis Panel, [facility] Reviewed date:08/25/2023 10:20:19 AM Interpretation:Normal Performing Lab: Notes/Report: Test performed by [facility] [address] [place], [place] [address] [place] , [address], [place] [address] Krish Cali MD, [facility] CLIA: [id number] Erythrocyte Sedimentation Rate (ESR), Automated 2 <21 mm/hr Rheumatoid Factor <10 <14.1 IU/mL C-Reactive Protein (CRP) 0.18 <0.50 mg/dL Antinuclear Antibodies (RASHAWN) Screen, Reflex RASHAWN 9 Panel Negative Negative Test performed by [employer] Bead Immunoassay methodology. Antinuclear Antibodies (RASHAWN) Result Note SEE COMMENT For positive Autoantibodies, please refer to the interpretive chart here: [email or web address] CCP Antibodies <0.5 <0.5-3.0 U/mL P-Lipid Panel Reviewed date:08/25/2023 10:20:19 AM Interpretation:Normal Performing Lab: Notes/Report: Test performed by [facility] [address] [place], [place] [address] [place] , [address], [place] [address] Krish Cali MD, [facility] CLIA: [id number] Cholesterol 134 <200 mg/dL Triglycerides 92 <150 mg/dL HDL Cholesterol 44 >39 mg/dL Cholesterol / HDL Ratio 3.05 0.00-4.99 Ratio Non-HDL Cholesterol 90 <130 mg/dL LDL Cholesterol (Calculation) 72 <130 mg/dL LDL Cholesterol Levels* Less than 100 mg/dL Optimal 100 to 129 mg/dL Near Optimal/ Above Optimal 130 to 159 mg/dL Borderline High 160 to 189 mg/dL High 190 mg/dL and above Very High * Categories as recommended by the 2004 ATPIII guidelines LDL/HDL Ratio 1.6 <3.3 Ratio LDL Cholesterol Patient History Test Date: 08/21/2023 LDL Results: 72 Units: mg/dL % Change: - P-PSA Reviewed date:08/25/2023 10:20:19 AM Interpretation:Normal Performing Lab: Notes/Report: Test performed by [facility] [place] [address] Krish Cali MD, [facility] CLIA: [id number] PSA 1.63 <4.00 ng/mL Please note this is an ultrasensitive PSA assay with a lower limit of detection of 0.014 ng/mL. This test is performed by the Lilia ECLIA methodology. Values obtained with different assay methods or kits cannot be directly compared. P-TSH reflex to FT4 Reviewed date:08/25/2023 10:20:19 AM Interpretation:Normal Performing Lab: Notes/Report: Test performed by [facility] [place] [address] Krish Cali MD, [facility] CLIA: [id number] TSH reflex to FT4 2.60 0.43-5.25 mU/L P-Vitamin D 25-Hydroxy Reviewed date:08/25/2023 10:20:19 AM Interpretation:35.3 Performing Lab: Notes/Report: Test performed by [facility] [address] [place] [address] , [address], [place] [address] Krish Cali MD, [place] CLIA: [id number] Vitamin D 25-Hydroxy 35.3 30.0-100.0 ng/mL Interpretation of Vitamin D 25 OH: < 20 ng/mL - Deficiency 20 - 29 ng/mL - Insufficiency 30 - 100 ng/mL - Sufficiency > 100 ng/mL - Super-therapeutic- toxicity may occur above this level. Clinical correlation required. sleep study Reviewed date:08/13/2024 09:06:07 AM Interpretation: Performing Lab: Notes/Report: REASON FOR VISIT checkup Medications Medication SIG (Take, Route, Fr equency, Duration) Notes Start Date End Date Status Omeprazole 40 MG 1 cap(s) orally Two times a day; Duration: 90 days Active Zepbound 2.5 MG/0.5ML 2.5 ml Subcutaneou s once a week 08/21/2023 Active Problems Problem Type SNOMED Code ICD Code Onset Dates Problem Status W/U Status Risk Notes Problem Obesity (556739771) Obesity (BMI 30-39.9) (E66.9) Active confirmed Vital Signs Weight 252 lbs 08/21/2023 Blood pressure systolic 120 mm Hg 08/21/19 24 Blood pressure diastolic 82 mm Hg 024 Heart Rate 77 /min 08/21/2023 Height 74 in 08/21/2023 BMI 32.35 kg/m2 08/21/2023 Encounters Encounter Location Date Provider Diagnosis [facility] [address] [place], [place] [id number] 08/21/2023 Анна Watson Vitamin D deficiency E55.9 ; Other fatigue R53.83 ; Snoring R06.83 ; Arthralgia of multiple joints M25.50 ; Screening PSA (prostate specific antigen) Z12.5 ; Screening, lipid Z13.220 and Obesity (BMI 30-39.9) E66.9 Assessments Encounter Date Diagnosis (ICD Code) Assessment Notes Treatment Notes Treatment Clinical Notes Section Notes 08/21/2023 Vitamin D deficiency (ICD-10 - E55.9) 08/21/2023 Other fatigue (ICD-10 - R53.83) 08/21/2023 Snoring (ICD-10 - R06.83) 08/21/2023 Arthralgia of multiple joints (ICD-10 - M25.50) 08/21/2023 Screening PSA (prostate specific antigen) (ICD-10 - Z12.5) 08/21/2023 Screening, lipid (ICD-10 - Z13.220) 08/21/2023 Obesity (BMI 30-39.9) (ICD-10 - E66.9) Plan Of Treatment Medication Medication Name Sig Start Date Stop Date Notes Zepbound 2.5 MG/0.5ML 2.5 ml Subcutaneous once a week 08/05 Next Appt Details Follow Up: via phone to repo rt test results, Reason: Progress Notes * MINDY PACHECO ADOB:1965 (59 yo M)Acc No.[id number]:08/21/2023 Progress Notes Patient: MINDY SMITH Provider: CONNIE Beatty :1965 A ge:58 Y S ex:Male Date:08/21/2023 Address:[facility] [place], [id number] Pcp:Hardik Moore Subjective: * Chief Complaints: * 1 . Checkup. * HPI: H PI: 58 year old male presents with c/o Patient is here today for?Pt would like to talk about options for weight loss today. Pt also states that his told him that he snores and stops breathing when he is asleep . * ROS: D ERMATOLOGY: no R anjelica. n o H angel. G ASTROENTEROLOGY: no N ausea. n o V omiting. U ROLOGY: no D ifficulty urinating. n o B lood in urine. * Medical History: K idney stones, 2016, Esophageal reflux, Hemorrhoids, Diverticulosis. * Surgical History: N ephrolithotomy 2016, Tonsillectomy , colonoscopy 2019. * Hospitalization/Major Diagno stic Procedure: D enies Past Hospitalization. * Family History: F ather: , family history unknown . M other: alive, family history unknown . Pt was adopted. * Social History: C URRENT TOBACCO USE: No S moking Status: P atient does NOT smoke, F ormer Smoker:?Yes, Q uit smokin 009, S moking pack year history: 1 5. * Medications: T aking Omeprazole 40 MG Capsule Delayed Release 1 cap(s) orally Two times a day , Discontinued Vitamin D3 125 MCG (5000 UT) Tablet 1 tab(s) orally once a day , Discontinued Medrol 4 MG Tablet Therapy Pack as directed orally , Discontinued Terbinafine HCl 250 MG Tablet 1 tab(s) orally once a day , Discontinued Cyclobenzaprine HCl 10 MG Tablet 1 tab(s) orally 3 times a day, prn , Medication List reviewed and reconciled with the patient * Allergies: S hellfish-derived Products: rash, Penicillin: rash. Objective: * Vitals: W t:252, Temp:97.8, BP:120/82, HR:77, Nurse:doug, Ht: 74, BMI:32.35. * Examination: G eneral Examination: General Appearance: N AD. H EENT: u nremarkable.?Oral cavity: n o lesions, mucosa moist and WNL, no erythema. N etienne: s upple, no lymphadenopathy. C hest: n ormal shape and expansion. H eart: R SR. L ungs: c lear to auscultation. A bdomen: bowel sounds present, soft and nontender, no organomegaly or masses, no guarding or rigidity. N eurologic Exam: I ntact, gait normal. S kin: n ormal, no rash. P eripheral pulses: n ormal (2+) bilaterally. E xtremities: n o leg edema. Assessment: * Assessment: 1. V itamin D deficiency - E55.9 (Primary) 2 . O ther fatigue - R53.83 3 . S noring - R06.83 4 . A rthralgia of multiple joints - M25.50 5 . S creening PSA (prostate specific antigen) - Z12.5 6 . Screening, lipid - Z13.220 7 . O besity (BMI 30-39.9) - E66.9 Plan: * Treatment: Value Reference Range V itamin D 25-Hydroxy 35.3 30.0-100.0 - ng/mL * Aniyah Figueroa 08/25/2023 10:1 9:06 AM >See phone encounter 2.?Other fatigue?LAB: P-Comprehensive Metabolic Panel (CMP) (Collection Date & Time - 08/21/2023 02:45 PM)?gluc 105* Value Reference Range A /G Ratio 2.3 1.1-2.5 - mg/dL * A lbumin 4.6 3.5-5.3 - g/dL * A lkaline Phosphatase 71 40-129 - IU/L * A LT (SGPT) 19 <5-55 - IU/L * A ST (SGOT) 24 <5-46 - IU/L * B ilirubin, Total 0.9 <0.2-1.2 - mg/dL * B UN 16 6-20 - mg/dL * C alcium 9.4 8.6-10.4 - mg/dL * C hloride 105 97-108 - mEq/L * C O2 25 22-32 - mEq/L * C reatinine 1.00 0.70-1.30 - mg/dL * G lucose 105 H 65-99 - mg/dL * P otassium 4.0 3.5-5.3 - mEq/L * S odium 140 135-145 - mEq/L * P rotein 6.6 6.0-8.3 - g/dL * e GFR by Creatinine 88 >59 - mL/min/1.73m2 * Aniyah Figueroa 08/25/2023 10:1 9:06 AM >See phone encounter ?LAB: P-TSH reflex to FT4 (Collection Date & Time - 08/21/2023 02:45 PM)? Normal* Value Reference Range T SH reflex to FT4 2.60 0.43-5.25 - mU/L * Aniyah Figueroa 08/25/2023 10:1 9:06 AM >See phone encounter ?LAB: CBC Venipuncture (in house) (Collection Date & Time - 08/21/2023)* Value Reference Range w bc 5.8 3.5 - 10 * l ymph 29.8 15 - 50 * m id 6.7 2 - 15 * g ran 63.5 35 - 80 * r bc 4.74 3.5 - 5.5 * h gb 14.9 11.5 - 16.5 * h ct 43.6 35 - 55 * m cv 92.0 75 - 100 * m ch 31.4 25 - 35 * m chc 34.2 31 - 38 * p latlet 217 100 - 400 * VonnieTayla 08/21/2023 4:54 :13 PM > ?Imaging: sleep study (Performed Date - 09/03/2023)* Анна Watson 08/25/2023 12 :50:22 AM >Joan Johnston 08/25/2023 10:11:50 AM > faxed order to Janette Hooker Анна Yung 08/13/2024 09:06:00 AM >see Te 3.?Snoring?Imaging: sleep study (Performed Date - 09/03/2023)* Анна Watson 08/25/2023 12 :50:22 AM >Joan Johnston 08/25/2023 10:11:50 AM > faxed order to Janette Hooker Анна Yung 08/13/2024 09:06:00 AM >see Te 4.?Arthralgia of multiple joints?LAB: P-Arthritis Panel, [facility] (Collection Date & Time - 08/21/2023 02:45 PM)?Normal* Value Reference Range A ntinuclear Antibodies (RASHAWN) Result Note SEE COMMENT - * A ntinuclear Antibodies (RASHAWN) Screen, Reflex RASHAWN 9 Panel Negative Negative - * C CP Antibodies <0.5 <0.5-3.0 - U/mL * C -Reactive Protein (CRP) 0.18 <0.50 - mg/dL * E rythrocyte Sedimentation Rate (ESR), Automated 2 <21 - mm/hr * R heumatoid Factor <10 <14.1 - IU/mL * Aniyah Figueroa 08/25/2023 10:1 9:06 AM >See phone encounter 5.?Screening PSA (prostate specific antigen)?LAB: P-PSA (Collection Date & Time - 08/21/2023 02:45 PM)?Normal* Value Reference Range P SA 1.63 <4.00 - ng/mL * Shalini Figueroaica 08/25/2023 10:1 9:06 AM >See phone encounter 6.?Screening, lipid?LAB: P-Lipid Panel (Collection Date & Time - 08/21/2023 02:45 PM)?Normal* Value Reference Range C holesterol / HDL Ratio 3.05 0.00-4.99 - Ratio * C holesterol 134 <200 - mg/dL * H DL Cholesterol 44 >39 - mg/dL * L DL Cholesterol (Calculation) 72 <130 - mg/d L * L DL/HDL Ratio 1.6 <3.3 - Ratio * N on-HDL Cholesterol 90 <130 - mg/dL * T riglycerides 92 <150 - mg/dL * Shalini Figueroaica 08/25/2023 10:1 9:06 AM >See phone encounter 7.?Obesity (BMI 30-39.9)? Start Zepbound Solution Auto-injector, 2.5 MG/0.5ML, 2.5 ml, Subcutaneous, once a week, 4, Refills 0.?? * Procedure Codes: 8 5025 CBC WITH AUTO DIFF, 83870 VENIPUNCT, ROUTINE* * Follow Up: v ia phone to report test results * Images: Billing Information: * Visit Code: 88176 Office Visit, Est Pt., Level 4. * Procedure Codes: 02494 CBC WITH AUTO DIFF. 73205 VENIPUNCT, ROUTINE*. * Electronic signature of CONNIE Wang on 12/29/2024 at 07:50 AM EDT Sign off status: Pending * Provider: CONNIE Beatty Date: 0 08/21/2023 Generated for Pierce ng/Fahilariog/eTransmitting on: 0 12/29/2024 07:50 AM EDT History and Physical Notes * HPI (History of Present Illness) Category Sub-Category Detail Notes Category Not es HPI Patient is here today for Pt wou ld like to talk about options for weight loss today. Pt also states that his told him that he snores and stops breathing when he is asleep Examination Category Sub-Category Detail Notes Category Not es General Examination HEENT: unremarkable Heart: RSR Lungs: clear to auscultatio n Abdomen: bowel sounds present , soft and nontender, no organomegaly or masses, no guarding or rigidity Extremities: no leg edema General Appearance: NAD Skin: normal, no rash Neurologic Exam: Intact, gait normal Neck: supple, no lymphaden opathy Oral cavity: no lesions, mucosa m oist and WNL, no erythema Peripheral pulses: normal (2+) bilatera lly Chest: normal shape and exp ansion
--- OUTSIDE RECORDS SUMMARY | 2024-12-29 07:50 | XMS_ITS | Encounter Summary ---
Author Organization Healthcare Address [address] [id number] Care Team Providers Care Supervisor Glycerin Name Role Phone Unavailable Primary Care Provider Unavailabl e Reason for Referral * Consultation (Routine) - Authorized Specialty Diagnoses / Procedures Referred By Contac t Referred To Contact Dentist / Pain Medicine Diagnoses Obstructive sleep apnea syndrome Micheline Moss MD [address] [place] [address] Phone: tel: fax: Marcelina Sena, DDS [address] [facility] [address] [place] [address] Phone: tel: fax: Referral ID Status Reason Start Date Expiration Date V isits Requested Visits Authorized [id number] Authorized 07/12/2024 01/11/2026 1 1 Encounter Details Date Type Department Care Team (Late st Contact Info) Description 07/12/2024 Community [facility] [address] [place] [address] Micheline Moss MD [address] [place] [address] Obstructive sleep apnea syndrome (Primary Dx) [...]
--- OUTSIDE RECORDS SUMMARY | 2024-12-29 07:50 | XMS_ITS | Clinical Summary ---
Author Organization Healthcare Address [address] [place] [address] Care Team Providers Care Mammography Tech Name Role Phone Unavailable Primary Care Provider Unavailabl e Encounters Date Type Department Care Team Description 10/21/2024 [facility]phone [facility] [address] [place] [address] Alka Moya from Last 3 Months Social History Tobacco Use Types Packs/Day Years Used Date Smoking Tobacco: Never Assessed Sex and Gender Information Value Date Recorded Sex Assigned at Not on file Legal Sex Male 8:25 PM EDT Gender Identity Not on file Sexual Orientation Not on file Plan of Treatment Not on file
--- OUTSIDE RECORDS SUMMARY | 2024-12-29 07:50 | XMS_ITS | Patient Health Record ---
[facility] [address] [facility] [address] [place] [id number] Care Team Providers Care Yarn Weigher Name Role Phone Hardik Moore Primary Care Provider [phone] Shirley Анна Unavailable [phone] Allergies Allergen (clinical drug ingredient) Drug/Non Drug [...] Status Risk Notes Problem Vitamin D deficiency (72573643) Vitamin D deficiency (E55.9) Active confirmed Problem Sciatic nerve lesion (785499381) Piriformis syndrome of right side (G57.01) Active confirmed Problem Obesity (652853515) Obesity (BMI 30-39.9) (E66.9) Active confirmed Problem Gastroesophageal reflux disease (275769660) Gastroesophageal reflux disease, esophagitis presence not specified (K21.9) Active confirmed Problem Joint pain (91308048) Arthralgia, unspecified joint (M25.50) Active confirmed Problem Gastroesophageal reflux disease (733380721) Gastroesophageal reflux disease, unspecified whether esophagitis present (K21.9) Active confirmed Encounters Encounter Location Date Provider Diagnosis [facility] [address] [facility] [address] [place] [id number] 08/13/2024 Анна Watson Plan Of Treatment No Information Insurance Providers Payer Name Payer Address Payer Phone Subscriber Number Group Number Insured Name Patient Relationship to Insured Coverage Start Date Coverage End Date MICHELLE [employer] [address] [place] [address] [id number] MINDY PCAHECO Self - patient is the insured Medical (General) History Medical History History ICD Code kidney stones, 2016 Esophageal reflux hemorrhoids diverticulosis Surgical History Surgery Date(Month/Year) colonoscopy 2019 Tonsillectomy Nephrolithotomy 2015
--- NOTE | 2024-12-29 08:00 | CA_ITS ---
APPROVED REPORT EXAM: Comprehensive 2D, Doppler, and color-flow Echocardiogram Signwriter: ANNA Skelton, RVS Ht: 6 ft 2 in Wt: 257lbs BSA: 2.42 BP: 124/86 mmHg Indications: Edema, Ex-smoker, HTN 2D Dimensions Left Atrium 3.19 cm M: 3.0 - 4.0 LA Volume 66.50 mL LA Volume Index 27.100365 mL/m2 (M/F) 16-34 M-Mode Dimensions RVDd 3.26 cm (0.9-2.6) LA Diam 4.94 cm (1.9-4.0) LVDd 4.87 cm (3.5-5.7) LVDs 3.02 cm (3.5-5.7) IVSd 1.17 cm (0.6-1.1) PWd 1.17 cm (0.6-1.1) EF (Teich) 68.00% EPSs 0.47 cm FS 38.00% EDV (Teich) 111.20 mL TAPSE 3.05 (<1.7) ESV (Teich) 35.60 mL LV Diastology E Decel Time 287 (160-240 msec) E/A Ratio 1.19 MED A' 11.40 cm/s LAT A' 11.90 cm/s Aortic Valve LUZ MARINA Index 1.12 cm2/m2 AoV Peak Jatinder. 141.0 (50-130 cm/s) AO Peak GR. 8.00 mmHg AO Mean GR. 4.00 (<5 mmHg) AO VTI 31.6 (18-25 cm) LUZ MARINA (VTI) 2.79 (2.5-4.5 cm2) Mitral Valve MV A Velocity 72.0 (40-130 cm/s) E/A Ratio 1.19 Tricuspid Valve TR P. Velocity 152.00 cm/s RAP Estimate 10.00 mmHg RVSP 19.20 mmHg Left Ventricle The left ventricle is normal size. Left ventricular systolic function is normal. The left ventricular ejection fraction is within the normal range. There is normal left ventricular wall thickness. There is normal LV segmental wall motion. The left ventricular diastolic function is normal. LVEF is 55% Right Ventricle The right ventricle is normal size. The right ventricular systolic function is normal. Atria The left atrium size is normal. The right atrium size is normal. There is no color Doppler evidence of interatrial shunt. Aortic Valve The aortic valve opens well. There is no hemodynamically significant aortic valvular stenosis. No aortic regurgitation is present. Mitral Valve The mitral valve is normal in structure. No evidence of mitral valve stenosis. Mild mitral regurgitation is present. Tricuspid Valve The tricuspid valve leaflets are thin and pliable. Trace tricuspid regurgitation. There is insufficient TR jet to estimate RVSP. Pulmonic Valve The pulmonary valve is grossly normal in structure. Trace pulmonic valve regurgitation is present. Great Vessels The aortic root is normal in size. IVC is normal in size and collapses >50% with inspiration. Pericardium There is no pericardial effusion. Other Information Study Quality: Fair Conclusion Normal biventricular systolic function. Mild MR. Electronically signed by : Elisabet Singh MD 12/29/2024 12:10:01
== END 2024-12-29 23:59 | disposition home or self-care (01) ==
LOC: RT 07:48
PROVIDERS: PCP Family Medicine; Visit Provider Family Medicine
DX: I34.0 Nonrheumatic mitral (valve) insufficiency (principal); I10 Essential (primary) hypertension; Z87.891 Personal history of nicotine dependence
CPT/HCPCS: 93306